=== PATIENT | female | born 1995 | race Caucasian/White ===

== ENCOUNTER 2021-01-13 17:32 | Emergency (ER) | payer OTHER ==
[2021-01-13 19:23] LABS: BILIRUBIN NEGATIVE (NEGATIVE); BLOOD NEGATIVE Ery/uL (NEGATIVE); CLARITY CLEAR (CLEAR); COLOR YELLOW (YELLOW); GLUCOSE (U) NORMAL (NORMAL); LEUKOCYTES NEGATIVE Leu/uL (NEGATIVE); NITRITE NEGATIVE (NEGATIVE); PROTEIN NEGATIVE (NEGATIVE); SPECIFIC GRAVITY >=1.030 (1.001-1.030); UROBILINOGEN 0.2 mg/dL (0.2-1.0)
== END 2021-01-13 19:22 | disposition home or self-care (01) ==
LOC: FER 17:32
PROVIDERS: Emergency Medicine
DX: O99.891 Other specified diseases and conditions complicating pregnancy (principal); R10.9 Unspecified abdominal pain; O99.512 Diseases of the respiratory system complicating pregnancy, second trimester; J45.909 Unspecified asthma, uncomplicated; Z98.890 Other specified postprocedural states; Z79.899 Other long term (current) drug therapy; Z3A.15 15 weeks gestation of pregnancy
CPT/HCPCS: 81003; 99283

== ENCOUNTER 2021-06-24 17:40 | Inpatient (IN) | payer OTHER ==
[2021-06-24 18:46] LABS: BILIRUBIN NEGATIVE (NEGATIVE); BLOOD TRACE-INTACT Ery/uL (NEGATIVE); CLARITY CLEAR (CLEAR); COLOR YELLOW (YELLOW); GLUCOSE (U) NORMAL (NORMAL); LEUKOCYTES NEGATIVE Leu/uL (NEGATIVE); NITRITE NEGATIVE (NEGATIVE); PROTEIN 2+ mg/dL (NEGATIVE); SPECIFIC GRAVITY >=1.030 (1.001-1.030)
[2021-06-24 18:56] LABS: BACTERIA 2+
[2021-06-24 19:21] LABS: HCT 34.1 % (37.0-47.0); HGB 11.3 g/dl (12.5-16.0); MCH 29.4 pg (25.0-31.0); MCHC 33.1 g/dL (32.0-36.0); MCV 88.8 fL (78.0-100.0); MPV 12.2 fL (6.0-9.5); RBC 3.84 M/uL (4.20-5.40); RDW 13.5 % (11.5-14.0); WBC 11.8 K/uL (4.0-10.5)
[2021-06-24 19:39] LABS: ALBUMIN 2.5 g/dL (3.4-5.0); BILIRUBIN - TOTAL 0.2 mg/dL (0.2-1.0); CREATININE 0.53 mg/dL (0.51-0.95); TOTAL PROTEIN 6.5 g/dL (6.4-8.2); URIC ACID 4.8 mg/dL (2.6-6.2)
[2021-06-24 19:41] LABS: AMPHETAMINES NEGATIVE (NEGATIVE); BARBITURATES NEGATIVE (NEGATIVE); ECSTASY (MDMA) NEGATIVE (NEGATIVE); MARIJUANA (THC) NEGATIVE (NEGATIVE); METHADONE NEGATIVE (NEGATIVE); OPIATES NEGATIVE (NEGATIVE); OXYCODONE NEGATIVE (NEGATIVE)
[2021-06-24 19:52] LABS: PROTEIN:CREATININE 1.34 RATIO; URINE CREATININE 195.18 mg/dL (29.00-226.00)
[2021-06-24 23:15] LABS: BILIRUBIN NEGATIVE (NEGATIVE); BLOOD 1+ Ery/uL (NEGATIVE); CLARITY CLEAR (CLEAR); COLOR YELLOW (YELLOW); GLUCOSE (U) NORMAL (NORMAL); LEUKOCYTES NEGATIVE Leu/uL (NEGATIVE); NITRITE NEGATIVE (NEGATIVE); PROTEIN 2+ mg/dL (NEGATIVE); SPECIFIC GRAVITY >=1.030 (1.001-1.030); UROBILINOGEN 0.2 mg/dL (0.2-1.0); pH 6.5 (5.0-9.0)
[2021-06-24 23:22] LABS: BACTERIA TRACE; URINARY WBC RARE
[2021-06-25 06:15] LABS: HCT 28.7 % (37.0-47.0); HGB 9.2 g/dl (12.5-16.0); MCH 29.4 pg (25.0-31.0); MCHC 32.1 g/dL (32.0-36.0); MCV 91.7 fL (78.0-100.0); MPV 11.3 fL (6.0-9.5); RBC 3.13 M/uL (4.20-5.40); RDW 13.7 % (11.5-14.0); WBC 14.5 K/uL (4.0-10.5)
[2021-06-26 10:52] LABS: HCT 27.4 % (37.0-47.0); HGB 8.7 g/dl (12.5-16.0); MCHC 31.8 g/dL (32.0-36.0); MCV 91.3 fL (78.0-100.0); MPV 11.5 fL (6.0-9.5); RDW 13.9 % (11.5-14.0); WBC 9.1 K/uL (4.0-10.5)
[2021-06-26] MEDS ORDERED: PRENATAL FORMU1 EACH PO ×2 (11:19→12:12)
[2021-06-26 11:23] LABS: ALBUMIN 2.1 g/dL (3.4-5.0); BILIRUBIN - TOTAL 0.2 mg/dL (0.2-1.0); BUN/CREAT RATIO (CALC) 17.2 RATIO; CREATININE 0.58 mg/dL (0.51-0.95); GLOBULIN (CALCULATION) 3.6 g/dL; POTASSIUM 4.1 mmol/L (3.5-5.1); TOTAL PROTEIN 5.7 g/dL (6.4-8.2)
[2021-06-26] MEDS ORDERED: ADVAIR 250-501 EACH INH (11:23)
[2021-06-26] MEDS ORDERED: MUCINEX 600MG600 MG PO (11:24)
[2021-06-26] MEDS ORDERED: CLARITIN10 MG PO (11:25)
[2021-06-26] MEDS ORDERED: BENADRYL25 MG PO (11:25)
[2021-06-26] MEDS ORDERED: VENTOLIN HFA IN18 GM INH (11:28)
[2021-06-26] MEDS ORDERED: COLACE100 MG PO (12:12)
[2021-06-26] MEDS ORDERED: TRANDATE100 MG PO (12:12)
[2021-06-26] MEDS ORDERED: LANOLIN HYDROUS TOP (12:12)
[2021-06-26] MEDS ORDERED: IBUPROFEN800 MG PO (12:12)
[2021-06-26] MEDS ORDERED: MI-ACID80 MG PO (12:12)
[2021-06-26] MEDS ORDERED: MLYLANTA/MAALOX30 ML PO (12:12)
== END 2021-06-27 10:40 | disposition home or self-care (01) | DRG 787 ==
LOC: FOD 17:40 → FOB 17:40 → FOD 19:13 → FOB 19:14
PROVIDERS: Specialist; ADMIT Obstetrics & Gynecology
PROC: 10D00Z1 Extraction of Products of Conception, Low, Open Approach (ICD-10-PCS; principal; 2021-06-24 21:30)
DX: O32.1XX0 Maternal care for breech presentation, not applicable or unspecified (principal); D62 Acute posthemorrhagic anemia; Z37.0 Single live birth; O34.211 Maternal care for low transverse scar from previous cesarean delivery; O14.04 Mild to moderate pre-eclampsia, complicating childbirth; O99.02 Anemia complicating childbirth; O99.214 Obesity complicating childbirth; Z20.822 Contact with and (suspected) exposure to COVID-19; O99.52 Diseases of the respiratory system complicating childbirth; J45.909 Unspecified asthma, uncomplicated; O35.8XX0 Maternal care for other (suspected) fetal abnormality and damage, not applicable or unspecified; Q85.00 Neurofibromatosis, unspecified; Z98.890 Other specified postprocedural states; Z3A.38 38 weeks gestation of pregnancy; Z79.51 Long term (current) use of inhaled steroids; Z79.899 Other long term (current) drug therapy
CPT/HCPCS: 36415; 80053; 80305; 81001; 82570; 83615; 84156; 84550; 86850; 86900; 86901; J0456; J0690; J1200; J1650; J1885; J2274; J2405; J3010; J7050; J7120; U0002